=== PATIENT | female | born 1965 | race Caucasian/White ===

== ENCOUNTER 2017-03-11 08:00 | Day surgery (SDC) | payer MEDICARE, MEDICAID ==
[~2017-03-11] VITALS: Ht 170.2 cm; Wt 73.3 kg
[2017-03-11 08:58] VITALS: BP 115/65; PULSE 72; RESP 17; TEMP 98.3; O2SAT 98
[2017-03-11] MEDS ORDERED: SODIUM BICARBONATE 100 MEQ in D5W 1000 ML IV SCH (09:00)
[2017-03-11 09:02] LABS: AUTOMATED NEUTROPHIL # 6.7 TH/MM3 (1.8-7.7); BASOPHIL # 0.1 TH/MM3 (0-0.2); BASOPHIL % 0.7 % (0.0-2.0); EOSINOPHIL # 0.1 TH/MM3 (0-0.4); EOSINOPHIL % 1.5 % (0.0-4.0); HEMO FLAGS DIFF FINAL; LYMPH % 22.2 % (9.0-44.0); LYMPHOCYTE # 2.1 TH/MM3 (1.0-4.8); MEAN CELL VOLUME 85.9 FL (80.0-100.0); MEAN CORPUSCULAR HEMOGLOBIN 29.5 PG (27.0-34.0); MEAN CORPUSCULAR HGB CONC 34.4 % (32.0-36.0); MONO % 6.2 % (0.0-8.0); NEUT % 69.4 % (16.0-70.0); PLATELET COUNT 208 TH/MM3 (150-450); RED BLOOD COUNT 5.12 MIL/MM3 (4.00-5.30); RED CELL DISTRIBUTION WIDTH 14.4 % (11.6-17.2); WHITE BLOOD COUNT 9.7 TH/MM3 (4.0-11.0)
[2017-03-11 09:07] LABS: INTERNATIONAL NORMALIZED RATIO 0.9 RATIO
[2017-03-11 09:20] LABS: BICARBONATE 27.1 MEQ/L (21.0-32.0); POTASSIUM 3.5 MEQ/L (3.5-5.1)
[2017-03-11] MEDS ORDERED: HUMU70IN SQ (09:29)
[2017-03-11] MEDS ORDERED: BUPR100T4 PO (09:29)
[2017-03-11] MEDS ORDERED: BUSP15TA PO (09:29)
[2017-03-11] MEDS ORDERED: PANC3600 PO (09:29)
[2017-03-11] MEDS ORDERED: TRAM50TA PO (09:29)
[2017-03-11] MEDS ORDERED: FENO160T PO (09:29)
[2017-03-11] MEDS ORDERED: AMIT25TA9 PO (09:29)
[2017-03-11] MEDS ORDERED: CYCL1TAB29 PO (09:29)
[2017-03-11] MEDS ORDERED: PLAV75TA29 PO (09:29)
[2017-03-11] MEDS ORDERED: FLUTI220I INH (09:29)
[2017-03-11] MEDS ORDERED: ALBUAER3 INH (09:29)
[2017-03-11] MEDS ORDERED: METF1000 PO (09:29)
[2017-03-11] MEDS ORDERED: OMEG1CAP53 PO (09:29)
[2017-03-11] MEDS ORDERED: HYDR-3366 PO (09:29)
[2017-03-11] MEDS ORDERED: ATOR10TA15 PO (09:29)
[2017-03-11] MEDS ORDERED: NEUR300C PO (09:29)
[2017-03-11] MEDS ORDERED: LANTINJ SQ (09:29)
[2017-03-11] MEDS ORDERED: OMEP20TA PO (09:29)
[2017-03-11] MEDS ORDERED: SPIRCAP INH (09:29)
[2017-03-11] MEDS ORDERED: FLUT1INH INH (09:29)
[2017-03-11] MEDS ORDERED: IBUP800T23 PO (09:29)
[2017-03-11] MEDS ORDERED: MIDAZOLAM HCL 5 MG/ML VIAL (1 ML) ONE (09:49)
[2017-03-11] MEDS ORDERED: HEPARIN SODIUM - IV 10,000 UNITS/10 ML VIAL ONE (10:36)
[2017-03-11] MEDS ORDERED: IOHEXOL IV ONE (11:16)
[2017-03-11] MEDS ORDERED: CLOPIDOGREL 300 MG TAB ONE (11:26)
[2017-03-11] MEDS ORDERED: ONDANSETRON HCL 4 MG/2 ML VIAL ONE (12:09)
--- NOTE | 2017-03-11 13:02 | MA ---
cc: SUNIL MARES DATE 03/11/[address] Sunil Mares PREOPERATIVE DIAGNOSES 1. Critical limb ischemia with short distance claudication and nonhealing toe wound right lower extremity. 2. History of right popliteal artery aneurysmal disease and high-grade stenosis by CTA of the right superficial femoral artery. POSTOPERATIVE DIAGNOSES 1. Critical limb ischemia with short distance claudication and nonhealing toe wound right lower extremity. 2. History of right popliteal artery aneurysmal disease and high-grade stenosis by CTA of the right superficial femoral artery. PROCEDURES 1. Aortogram. 2. Selective right lower short arteriogram. 3. Balloon angioplasty of right superficial femoral artery with a 2-cm x 5-mm Lightonus.comtronic Admiral balloon. IV FLUIDS 1 liter. ESTIMATED BLOOD LOSS Minimal. URINE OUTPUT Not calculated. COMPLICATIONS None. DISPOSITION To PACU. PROCEDURE The patient's left groin, common femoral artery was accessed using duplex ultrasound. I did use 3 cc of 1% lidocaine before accessing this area and the patient was under moderate sedation. I got access to the left common femoral artery and using Seldinger technique exchanged from a 4-Montserratian to a 5-Montserratian sheath. I advanced an Omni flush catheter into the abdominal aorta and shot an AP aortogram. I pulled my catheter and now shot pelvic oblique arteriograms. I then selected the right lower extremity with an Omni flush catheter. Once I selected the left external iliac artery I shot a selective right lower extremity arteriogram. My findings up to this point are that the abdominal aorta was widely patent, the bilateral renal arteries, bilateral common internal and external iliac arteries were patent with minimal disease. The left common femoral profunda and proximal SFA were patent. It should be noted there appeared to be at least a mild stenosis of the proximal SFA on the left. The right common and the profunda femoral arteries were widely patent. The right superficial femoral artery had a short segment of less than 5 cm, high-grade stenosis distally. The right popliteal artery that would appear to be appropriate flow lumen with some at least mild narrowing. It should be noted that we knew previously that the right popliteal artery was slightly aneurysmal. The main runoff to the right lower extremity was via the peroneal artery. There was a calcified stenosis of the origin of the anterior tibial artery with a chronic total occlusion with reconstitution distally by the peroneal. The right posterior tibial artery is not seen. I did exchange for a 6-Montserratian Destination sheath, then performed a selective right lower extremity arteriogram with backed up view. This was of the right superficial femoral artery. I did heparinize the patient with about 5000 units heparin to an ACT of greater than 270. I then performed balloon angioplasty of a short segment stenosis that appeared to be a high-grade in the right SFA with a 5-mm x 2-cm balloon that required two inflations of a severe and then a more moderate stenosis distally in the SFA. Afterwards there appeared to be resolution of the stenosis with no elastic recoil or residual narrowing nor dissection flap. A completion angiogram showed there was continued blood flow into the foot and what appeared to be maybe some wire spasm in the distal peroneal artery but blood flow was brisk into the pedal vessels, reconstituting the anterior tibial artery and dorsal arch. At the end of the procedure I exchanged for a 6-Montserratian AngioSeal in the left groin and applied pressure. The patient tolerated the procedure and was taken to the PACU. DO ALAINA Esquivel/[place] /11:00 AM /12:45 PM
== END 2017-03-11 15:34 | disposition home or self-care (01) ==
LOC: HDOC 08:00 → HDIC 08:01 → HDOC 15:34
PROVIDERS: ATTEND Surgery
DX: I70.211 Atherosclerosis of native arteries of extremities with intermittent claudication, right leg (principal); I70.92 Chronic total occlusion of artery of the extremities; I10 Essential (primary) hypertension; E78.5 Hyperlipidemia, unspecified; E11.9 Type 2 diabetes mellitus without complications; Z79.01 Long term (current) use of anticoagulants
CPT/HCPCS: 37224; 75710; 80048; 85002; 85025; 85610; C1725; C1769; J1644; J2250; J2405; J3010; J7070

== ENCOUNTER 2017-08-24 06:06 | Day surgery (SDC) | payer MEDICARE, MEDICAID ==
[~2017-08-24] VITALS: Ht 165.1 cm; Wt 75.9 kg
[~2017-08-24 06:06] MED LIST: ALBUAER3 INH; AMIT25TA9 PO; ATOR10TA15 PO; BUPR100T4 PO; BUSP15TA PO; CYCL10TA PO; FENO160T PO; FLUT1INH INH; FLUTI220I INH; HUMU70IN SQ; HYDR-3366 PO; IBUP1TAB7 PO; LANTINJ SQ; METF1000 PO; NEUR300C PO; OMEG1CAP53 PO; OMEP20TA93 PO; PANC3600 PO; PLAV75TA29 PO; SPIRCAP INH; TRAM50TA PO
[2017-08-24] MEDS ORDERED: IOHEXOL 350 MG/ML 50 ML BTL (for Cath Lab) OTHER ONE (06:07)
[2017-08-24 06:30] VITALS: BP 145/89; PULSE 74; RESP 18; TEMP 98.2; O2SAT 98
[2017-08-24] MEDS ORDERED: EMPA1TAB3 PO (06:41)
[2017-08-24] MEDS ORDERED: PERC5TAB12 PO (06:41)
--- NOTE | 2017-08-24 06:50 | HHI.HP ---
History of Present Illness Chief Complaint: R LE pain, PAD History of Present Illness 52 yo female with PAD s/p R LE intervention by Dr. Orlando several months ago. Leg worse. + claudication and some pain at night, but not clearly rest pain. No motor dysfunction Past/Family/Social History Past Medical History COPD HTN DM XOL Past Surgical History B LE angiogram Social History + tobacco Family History NC Home Medications Reported Medications Oxycodone-Acetaminophen (Percocet) 5-325 mg Tab, 1 TAB PO Q4H Y for PAIN, TAB 0 Refills 08/24/17 Empagliflozin (Jardiance) 25 Mg Tab, 25 MG PO DAILY for Blood Sugar Management, #30 TAB 0 Refills 08/24/17 Tgcfu-1-Qerw Ethyl Esters (Lovaza) 1 Gm Cap, 1 GM PO BID for Manage Triglycerides, #120 CAP 0 Refills 03/11/17 Tramadol (Tramadol) 50 Mg Tab, 50 MG PO Q6H Y for PAIN, TAB 0 Refills 03/11/17 Tiotropium Inh (Spiriva Handihaler) 18 Mcg Cap, 18 MCG INH DAILY for COPD, #30 CAP 0 Refills 1 capsule = 18 mcg 03/11/17 Pancrelipase (Creon) 36,000-114,000-180,000 Units Cap, 1 CAP PO TIDPC for Digestive Aid, #90 CAP 0 Refills 03/11/17 Omeprazole (Omeprazole) 20 Mg Tab, 20 MG PO DAILY, #30 TAB 0 Refills 03/11/17 Insulin NPH Isophane-Reg (Human) 70-30 Inj (Humulin 70-30 Inj) 1,000 Unit/10 Ml Vial, 30 UNIT SQ TID 03/11/17 Insulin Glargine Inj (Lantus Solostar Pen Inj) 300 Unit/3 Ml Pen, 100 UNITS SQ for Blood Sugar Management, PEN 0 Refills 03/11/17 Ibuprofen (Ibuprofen) 800 Mg Tab, 800 MG PO Q6HR Y for PAIN, #40 TAB 0 Refills 03/11/17 Gabapentin (Neurontin) 300 Mg Cap, 300 MG PO TID, #90 CAP 0 Refills 03/11/17 Fluticasone-Vilanterol Inh (Breo Ellipta Inh) 100-25 Mcg/Act Inh, 1 PUFF INH DAILY, #1 INHALER 0 Refills Use daily at the same time. 03/11/17 Fluticasone 12 GM Inh (Flovent Hfa 12 GM Inh) 220 Mcg/Act Inh, 2 PUFF INH BID for Asthma Management, #1 INHALER 0 Refills Use daily at the same time. 03/11/17 Fenofibrate (Fenofibrate) 160 Mg Tab, 160 MG PO DAILY, #30 TAB 0 Refills 03/11/17 Cyclobenzaprine (Flexeril) 10 Mg Tab, 10 MG PO TID for Muscle Spasm, #90 TAB 0 Refills 03/11/17 Clopidogrel (Plavix) 75 Mg Tab, 75 MG PO DAILY for Blood Clot Prevention, #30 TAB 0 Refills 03/11/17 Buspirone (Buspirone) 15 Mg Tab, 15 MG PO TID for Anxiety, TAB 0 Refills 03/11/17 Bupropion HCl (Bupropion HCl) 100 Mg Tab, 100 MG PO DA for Control Depression, TAB 0 Refills 03/11/17 Atorvastatin (Atorvastatin) 10 Mg Tab, 10 MG PO HS for Cholesterol Management, # 30 TAB 0 Refills 03/11/17 Amitriptyline (Amitriptyline) 25 Mg Tab, 25 MG PO HS for Control Depression, # 30 TAB 0 Refills 03/11/17 Albuterol 8.5 GM Inh (Proair Hfa 8.5 GM Inh) 90 Mcg/Act Aer, 2 PUFF INH Q6H Y for SHORTNESS OF BREATH, #1 INHALER 0 Refills 108 mcg/actuation 03/11/17 Coded Allergies: Sulfa (Sulfonamide Antibiotics) (Verified Allergy, Severe, RASH, 03/11/17) morphine (Verified Allergy, Severe, RASH, 03/11/17) oxycodone (Verified Allergy, Severe, RASH, 03/11/17) Review of Systems Constitutional: DENIES: Fatigue, Fever Cardiovascular: COMPLAINS OF: Claudication, DENIES: Chest pain Physical Exam Neuro: alert, oriented, no distress HEENT: NC/AT Neck: no JVD, trachea midline Heart: reg rate, no M Lungs: clear B Vascular: no palpable R LE pulses Extremities: no C/C/E pending will make in OR Caprini VTE Risk Assessment Caprini VTE Risk Assessment: No/Low Risk (score <= 1) Caprini Risk Assessment Model Point Value = 1 Point Value = 2 Point Value = 3 Point Value = 5 Age 41-60 Minor surgery BMI > 25 kg/m2 Swollen legs Varicose veins or History of unexplained or recurrent spontaneous Oral contraceptives or hormone replacement Sepsis (< 1 month) Serious lung disease, including pneumonia (< 1 month) Abnormal pulmonary function Acute myocardial infarction Congestive heart failure (< 1 month) History of inflammatory bowel disease Medical patient at bed rest Age 61-74 Arthroscopic surgery Major open surgery (> 45 min) Laparoscopic surgery (> 45 min) Malignancy Confined to bed (> 72 hours) Immobilizing plaster cast Central venous access Age >= 75 History of VTE Family history of VTE Factor V Leiden Prothrombin [id number] Lupus anticoagulant Anticardiolipin antibodies Elevated serum homocysteine Heparin-induced thrombocytopenia Other congenital or acquired thrombophilia Stroke (< 1 month) Elective arthroplasty Hip, pelvis, or leg fracture Acute spinal cord injury (< 1 month) Prophylaxis Regimen Total Risk Factor Score Risk Level Prophylaxis Regimen 0-1 Low Early ambulation 2 Moderate Order ONE of the following: *Sequential Compression Device (SCD) *Heparin 5000 units SQ BID 3-4 Higher Order ONE of the following medications: *Heparin 5000 units SQ TID *Enoxaparin/Lovenox 40 mg SQ daily (WT < 150 kg, CrCl > 30 mL/min) *Enoxaparin/Lovenox 30 mg SQ daily (WT < 150 kg, CrCl > 10-29 mL/min) *Enoxaparin/Lovenox 30 mg SQ BID (WT < 150 kg, CrCl > 30 mL/min) AND/OR *Sequential Compression Device (SCD) 5 or more Highest Order ONE of the following medications: *Heparin 5000 units SQ TID (Preferred with Epidurals) *Enoxaparin/Lovenox 40 mg SQ daily (WT < 150 kg, CrCl > 30 mL/min) *Enoxaparin/Lovenox 30 mg SQ daily (WT < 150 kg, CrCl > 10-29 mL/min) *Enoxaparin/Lovenox 30 mg SQ BID (WT < 150 kg, CrCl > 30 mL/min) AND *Sequential Compression Device (SCD) Assessment and Plan Plan Aortogram w/ R LE angiogram and intervention All questions answered. Operative side marked Ezio Baltazar MD Aug 24, 2017 06:50
[2017-08-24] MEDS ORDERED: MIDAZOLAM HCL 2 MG/2 ML VIAL ONE (07:19)
[2017-08-24] MEDS ORDERED: HEPARIN SODIUM - IV 10,000 UNITS/10 ML VIAL ONE (07:19)
[2017-08-24 07:20] LABS: BICARBONATE 29.7 MEQ/L (21.0-32.0); CALCIUM 8.9 MG/DL (8.5-10.1); CREATININE 0.57 MG/DL (0.50-1.00)
[2017-08-24] MEDS ORDERED: NITROGLYCERIN INJ 5 ML ONE (07:20)
[2017-08-24] MEDS ORDERED: ceFAZolin INJ 1,000 MG VIAL ONE (07:50)
[2017-08-24] MEDS ORDERED: CLOPIDOGREL 75 MG TAB PO ONE (08:00)
--- NOTE | 2017-08-24 08:00 | HHI.PR ---
cc: Ezio Baltazar MD Immediate Post Op Note Procedure Date: Aug 24, 2017 Pre Op Diagnosis: R LE PAD, claudication Post Op Diagnosis: R LE PAD, claudication Surgeon: Ezio Baltazar Pecan Grower(s): none Procedure: Aortogram w/ R LE angiogram R SFA HOSPICE AIDE/stent (6x60) Findings: successful resolution of SFA recurrent stenosis peroneal artery runoff Additional Information: L GRAIN SHIPPER Angioseal Complications: none Specimen(s) removed: none Estimated blood loss: 10mL Anesthesia: MAC Drains: None Patient to: Other (DOCU) Patient Condition: Good Implant/Devices: SEE IMPLANT LOG (if applicable) Date/Time of Procedure: SEE SURGICAL CARE RECORD Ezio Baltazar MD Aug 24, 2017 08:00
--- NOTE | 2017-08-24 08:16 | CATHPROC ---
[facility] HIS Report Study Information Study Number Admission Scheduled Start Study Start [id number] Aug 24 2017 6:06AM 08/24/2017 Aug 24 2017 7:17AM [place] Service Cath Endovascular Study Admit Source Facility Department Other [facility] Physician and Clinical Staff Initial MD Baltazar, Ezio Chemist Inorganic Alessia Streeter,RL Recorder Eli Garcia,RT(R) (BS) Scrub Edvin BaptisteRT(R) Procedures Performed Procedure Location (Site) Vessel Name Abdominal Angiogram Abd Aorta (A3) Aorta Periph stent SFA (right) Femoral Art FIREARMS MODEL MAKER SFA (right) Femoral Art Wire insertion Fem Art (left) Femoral Art Equipment Time Foam Caster Description Size Mfg Part Number Used/Scraped [id number] 07:23 ANGIO-DYNAMICS OMNI FLUSH 65CM CATHETER FR 4 Used *[id number] INTRODUCER SET, 07:23 [employer]. FR 5 [id number] *[id number] Used MICROPUNCTURE, STIFFENED CXI-[id number]- 07:38 COOK/CHRISTINA CATHETER, FR4 CXI SUPPORT FR 4 Used P-NS-0 *[id number] SHEATH, FR6 ANIRUDH 1 FLEXOR [id number] 07:38 COOK/CHRISTINA FR 6 Used 55CM *[id number] WIRE, GUIDE APPROACH GO GO DANCER [id number] 07:38 COOK/CHRISTINA 300CM Used MICROWIRE *[id number] 07:56 DAIG/[employer] ANGIOSEAL, FR6 VIP FR 6 Used *[id number] ENDOVASCULAR 07:51 STENT, EVERFLEX 6 X 60 120CM 6 X 60 [id number] Used COMPANY BALLOON, ADMIRAL EXTREME 5 [id number] 07:54 [employer] 130CM Used X 60 130CM *[id number] BALLOON, PACIFIC PLUS 5 X 80 [id number] 07:42 [employer] 130CM Used 130CM *[id number] 07:23 [employer] IND[employer]RIES PACK, CCL CUSTOM * Used *[id number] 08:07 Platform Solutions 30 RICK INDEFLATOR Used *[id number] 07:23 [employer] Solutions PRESSURE TUBING 48" 48" [id number] 07:38 [employer] WIRE, COTTRELL 260CM .035 260CM Used *[id number] 07:23 NAMIC TUBING, HIGH PRESSURE 20" 20" Used *[id number] TUBING, PRESSURE INJECTION [id number] 07:23 NAMIC PACER 72" Used 72" *[id number] 07:23 NYCOMED OMNIPAQUE, 300 MG, 150ML 150ML [id number] Used 07:23 [employer]COMED OMNIPAQUE, 300 MG, 50ML 50ML [id number] Used [id number] 07:23 [employer],WARM AIR CCL * Used *[id number] 07:23 TERUMO [employer]ICAL SHEATH, FR4 TERUMO (10CM) FR 4 Used *[id number] 07:23 TERUMO MEDICAL SHEATH, FR4 TERUMO (10CM) FR 4 Used *[id number] WIRE, ANGLED GLIDE .035 [id number] 07:23 TERUMO MEDICAL/CHRISTINA 260CM Used 260CM *[id number] Equipment Model, Serial, Lot Number and Expiration Data Description Model Number Serial Number Lot Number Expiration Date BALLOON, PACIFIC PLUS 5 X 80 [id number] 09-09-2019 130CM CATHETER, FR4 CXI SUPPORT [id number] 04-09-2020 SHEATH, FR6 ANIRUDH 1 FLEXOR [id number] 04-19-2020 55CM STENT, EVERFLEX 6 X 60 120CM [id number] 06-22-2021 WIRE, ANGLED GLIDE .035 260CM [id number] 05-11-2018 WIRE, GUIDE APPROACH GO GO DANCER [id number] 08-26-2021 MICROWIRE History: Current Medications Medication Dosage/Unit Route Frequency Last Date/Time Taken Statins (any) PLAVIX History: Allergies Allergy Reaction Sulfa (Sulfonamide Antibiotics) RASH morphine RASH oxycodone RASH History: Other Current Smoker Yes Medication Medication Total Dose (Bolus/Oral) Medication Total Dosage/Unit 1% XYLOCAINE 20 mL FENTANYL 50 mcg HEPARIN 5000 units VERSED 2 mg Medications (Bolus/Oral) Medication Time Given Dosage/Unit Administered By Reason VERSED 08/24/2017 7:29:20 AM 2 mg Alessia Streeter 2 mg VERSED given in lab by Alessia Streeter RN in Left Antecubital via Peripheral IV. 1% XYLOCAINE 08/24/2017 7:29:40 AM 20 mL Ezio Baltazar 20 mL 1% XYLOCAINE given in lab by Ezio Baltazar in Left Groin via Subcutaneous. FENTANYL 08/24/2017 7:30:26 AM 50 mcg Alessia Streeter 50 mcg FENTANYL given in lab by Alessia Streeter, RL in Left Antecubital via Peripheral IV. HEPARIN 08/24/2017 7:37:33 AM 5000 units Alessia Streeter 5000 units HEPARIN given in lab by Alessia Streeter, RL in Left Antecubital via Peripheral IV. Medication (Drip) Medication Time Given Dosage/Unit Concentration/Unit Diluent (ml) Solutio n ANCEF 08/24/2017 7:57:40 AM 2 g 2 g ANCEF given in lab by Alessia Streeter, RL in Left Antecubital via Peripheral IV. IV Solutions 08/24/2017 7:17:22 AM 0 mL (IV) 500 NaCl .9 IV Solutions given in lab by Alessia Streeter RN in Left Antecubital via Peripheral IV. Pump/Drip Michael w = 30 ml/hr using NaCl .9. Initial Case Assessment Cardiovascular HR NIBP 66 146/62 Edema Present Skin color Skin None Normal Warm Dry Circulatory - Right Pulses Femoral 2 Scale (0,1,2,3,4,d) Circulatory - Left Pulses Femoral 2 Scale (0,1,2,3,4,d) Circulatory - Lower Extremities Color Lower Right Color Lower Left Normal Normal Neurological State Oriented to time-place- Alert Moves all extremities person Respiration - General Respiration Rate SpO2 (%) (B/min) 13 98 Chronological Log Time Study Chronological Log 7:10:47 Patient arrived via Bed. 7:10:50 Patient Name, D.O.B, / Armband Verified By R.N. 7:16:53 Consent signed by the physician and the patient and verified by the [facility] staff. 7:16:53 Pre-op and post- op instructions given; patient acknowledges understanding of instructions. 7:16:56 Verbal Stimulation=2 Physical Stimulation=2 Airway=2 Respiration=2 TOTAL=8. (0=absent, 1=li mited, 2=present) Time Out. Correct patient, correct procedure, correct physician, power injector or not loaded w ith contrast with surgical 7:16:57 team present. Time Out Concurred by MD and individual staff in procedure. 7:16:59 Presedation assessment performed by [facility] RN. 7:17:03 Patient has been NPO for More than 6Hrs. 7:17:03 Skin Breakdown none per pt 7:17:09 Patient Warmer Placed on the Table. 7:17:12 Lianet Prominences Protected 7:17:21 A # 20 IV was noted in the Antecubital (left). Grade = 0 IV Solutions given in lab by Alessia Streeter, RL in Left Antecubital via Peripheral IV. Pump/Dr ip Flow = 30 ml/hr using 7:17:22 NaCl .9. 7:17:25 History and physical on the chart or being dictated. Assessment: Initial Case, HR=66 BPM, GJYN=568/62 mmhg, Edema=None, Color=Normal, Skin = Warm, Dr y Right Pulses: Femoral=2 Left Pulses: Femoral=2 7:17:26 Lower Right Extremities: Color=Normal Lower Left Extremities: Color=Normal Neurological: State=Alert, Ox3, CHAN Respiration: Resp=13 B/min, SpO2=98 % Vitals capture started with the following parameters, Patient=Adult, Interval=5 min, Initial Pre lglfa=109 mmHg, 7:18:39 Deflation Rate=5 mmHg, Cuff placed on Right Ankle 7:19:22 HR=66 bpm, MBXU=637/62 mmhg, SpO2=94.0 %, Resp=0 B/min, Pain=0, Dean=10, Serrano=2 7:24:21 HR=66 bpm, VHZA=725/66 mmhg, SpO2=98.0 %, Resp=14 B/min, Pain=0, Dean=10, Serrano=2 7:24:49 Bilateral groins prepped with 2% chlorhexidine, and draped after a 3 minute waiting time. 7:26:03 Reference ECG taken 7:27:10 Case Start 7:29:20 HR=68 bpm, NZJK=380/71 mmhg, SpO2=98.0 %, Resp=16 B/min, Pain=0, Dean=10, Serrano=2 7:29:20 2 mg VERSED given in lab by Alessia Streeter, RN in Left Antecubital via Peripheral IV. 7:29:40 20 mL 1% XYLOCAINE given in lab by Ezio Baltazar in Left Groin via Subcutaneous. 7:30:26 50 mcg FENTANYL given in lab by Alessia Streeter, RN in Left Antecubital via Peripheral IV. 7:30:48 Access site was Left Femoral Artery. A INTRODUCER SET, MICROPUNCTURE, STIFFENED FR 5 was advanced into the Fem Art (left) using the P ercutaneous 7:30:52 technique. A SHEATH, FR4 TERUMO (10CM) FR 4 was exchanged in the Fem Art (left). This was necessary in orde r to 7:31:04 accomodate a larger catheter. A OMNI FLUSH 65CM CATHETER FR 4 was advanced over a wire. OMNIPAQUE, 300 MG, 150ML 150ML was use d for 7:31:50 injections. 7:34:21 HR=66 bpm, XFMV=323/66 mmhg, SpO2=97.0 %, Resp=23 B/min, Pain=0, Dean=10, Serrano=2 7:34:43 Through a OMNI FLUSH 65CM CATHETER FR 4, The Abdominal Aorta was injected with 10 cc's of co ntrast. Through a OMNI FLUSH 65CM CATHETER FR 4, The Femoral Run-off was injected with 4 cc's per second . Injections 7:34:56 continued down the right leg. 7:35:34 Catheter was removed w/o difficulty 7:37:26 A WIRE, SIMBA 260CM .035 260CM was inserted via Fem Art (left). 7:37:33 5000 units HEPARIN given in lab by Alessia Streeter, RN in Left Antecubital via Peripheral IV . A SHEATH, FR6 ANIRUDH 1 FLEXOR 55CM FR 6 was exchanged in the Fem Art (left). This was necessary i n order to 7:37:56 accomodate a larger catheter. A CATHETER, FR4 CXI SUPPORT FR 4 was advanced over a wire. OMNIPAQUE, 300 MG, 150ML 150ML was us ed for 7:39:15 injections. 7:39:20 HR=67 bpm, LYUJ=297/68 mmhg, SpO2=95.0 %, Resp=17 B/min, Pain=0, Dean=10, Serrano=2 A BALLOON, PACIFIC PLUS 5 X 80 130CM 130CM was inserted over WIRE, GUIDE APPROACH GO GO DANCER MICROWIRE 300CM 7:44:10 via the Fem Art (left). 7:44:21 HR=65 bpm, CAFO=194/58 mmhg, SpO2=97.0 %, Resp=15 B/min, Pain=0, Dean=10, Serrano=2 7:44:26 In the SFA (right) a BALLOON, PACIFIC PLUS 5 X 80 130CM 130CM was inflated to 8 atms for 120 seconds. 7:47:23 Balloon Removed. 7:47:34 The previous wire was exchanged for a WIRE, COTTRELL 260CM .035 260CM. 7:49:20 HR=65 bpm, NGTZ=330/67 mmhg, SpO2=98.0 %, Resp=17 B/min, Pain=0, Dean=10, Serrano=2 A STENT, EVERFLEX 6 X 60 120CM 6 X 60 was advanced through a CATHETER, FR4 CXI SUPPORT FR 4 over a WIRE, 7:49:50 COTTRELL 260CM .035 260CM. 7:50:41 A STENT, EVERFLEX 6 X 60 120CM 6 X 60 was deployed 7:51:10 Delivery device removed 7:54:21 HR=67 bpm, OVLR=345/63 mmhg, SpO2=97.0 %, Resp=17 B/min, Pain=0, Dean=10, Serrano=2 7:54:39 Wire removed 7:54:46 Catheter was removed w/o difficulty 7:55:07 ANGIOSEAL, FR6 VIP FR 6 placement in the Fem Art (left) 7:56:38 Case End 7:57:40 2 g ANCEF given in lab by Alessia Streeter, RN in Left Antecubital via Peripheral IV. 7:57:43 DOCU called. Spoke to Rey. 7:59:22 HR=68 bpm, PRIW=550/65 mmhg, SpO2=97.0 %, Resp=20 B/min, Pain=0, Dean=10, Serrano=2 8:00:26 Catheter(s) removed without difficulty 8:00:29 Sterile dressing applied to site 8:00:34 No case complications noted. 8:00:36 Bedside Report will be given. 8:00:36 Implantable Device card placed in patient's chart. 8:04:[address] [facility] End Study - Radiation Exposure Fluoro Time (minutes) 5.8 End Study - Sheaths Sheaths Pulled By Sheath Hold Time (min) Ezio Baltazar End Study - Patient Disposition Complications Transferred To Interventional Outcome No [facility] Holding successful
--- NOTE | 2017-08-25 09:43 | MP ---
cc: RODOLFO BALTAZAR MD DATE OF SURGERY 08/24/2017 PREOPERATIVE DIAGNOSIS Right lower extremity ischemia, claudication. POSTOPERATIVE DIAGNOSIS Right lower extremity ischemia, claudication. PROCEDURE 1. Aortogram with right extremity angiogram. 2. Right SFA angioplasty and stent. ATTENDING PHYSICIAN Rodolfo Baltazar MD ANESTHESIA Local with sedation INDICATION Ms. Ji is a 52-year lady who has right lower extremity claudication and a failed endovascular revascularization. She is taken to the operating room for angiographic evaluation and treatment. There is no prior catheter-based imaging available for my review since the recurrence of her symptoms. DESCRIPTION OF THE PROCEDURE Informed consent obtained from the patient. She was taken to the operating room, placed supine on the operating room table and appropriate time-out was taken to ensure the patient's identity, operative site and planned procedure. The administration of a gram of Ancef was initiated prior to stent implantation and will be discontinued after a single preoperative dose. Everyone in the room agreed with the time-out and we proceeded. Her bilateral groin was prepped and draped and the left groin was anesthetized with 1% lidocaine. A 21 gauge micropuncture needle was used to access the left common femoral artery. This was exchanged using Seldinger technique for micropuncture sheath through which a 0.035 Glidewire was introduced. The micropuncture sheath was exchanged for a 5-Tamazight sheath. A VCF catheter was placed over the wire and through the sheath and aortogram pelvic arteriograms obtained. The Glidewire was reintroduced and navigated down to the right common femoral artery and a VCF catheter was advanced over this. A right lower extremity arteriogram was obtained. The patient was systemically heparinized with 5000 units of IV heparin. A 0.035 Fraser wire was introduced through the VCF catheter and the VCF catheter was removed and the 5-Tamazight sheath was removed. A 6-Tamazight 55 cm Efra sheath was introduced and a CXI catheter was placed over this. The Fraser and CXI were then navigated down to the distal popliteal artery and the distal SFA was angioplastied with a 5-mm balloon. The completion angiogram showed a significant dissection that was treated with a 6 x 60 stent that was postdilated to 5 mm. The completion angiogram showed excellent on recoil extravasation. The wire, catheter and sheath were removed and the groin was closed with Angio-Seal. There were no complications. I was present and scrubbed for the entire procedure. INTERPRETATION IMAGES The patient has a patent terminal aorta, patent common iliac arteries bilaterally. The external iliac arteries are patent bilaterally. There is no significant stenoses in any of these vessels. The right common femoral artery is patent. The profunda is patent. The proximal SFA is patent without any hemodynamically significant stenosis. The mid to distal SFA has a high-grade stenosis that is near occlusion, but then the popliteal artery is patent with some disease, but nothing appears hemodynamically significant. From the infrapopliteal popliteal, the predominant runoff is the peroneal artery which goes down to the level of the ankle. After angioplasty of the SFA lesion, there is residual dissection and after treating this with a stent, there is excellent filling of the distal SFA without any embolic complications. There is no flow-limiting dissection and no extravasation. MD [place] Underwood/MAURO /7:01 AM /9:34 AM
== END 2017-08-24 10:30 | disposition home or self-care (01) ==
LOC: HDIC 06:06 → HDOC 06:06
PROVIDERS: ATTEND Surgery
DX: I73.9 Peripheral vascular disease, unspecified (principal); I10 Essential (primary) hypertension; J44.9 Chronic obstructive pulmonary disease, unspecified; E11.51 Type 2 diabetes mellitus with diabetic peripheral angiopathy without gangrene; Z79.4 Long term (current) use of insulin
CPT/HCPCS: 37225; 75625; 75710; 80048; 99152; 99153; C1725; C1751; C1760; C1769; C1876; C1893; G0269; J0690; J1644; J2250; J3010; Q9967